=== PATIENT | male | born 1995 | race Caucasian/White ===

== ENCOUNTER 2021-08-28 13:23 | Outpatient (CLI) | payer OTHER, SELFPAY ==
--- NOTE | ~2021-08-28 | XR_ITS ---
XR ribs BI 3V w CXR 2V DATE: 08/28/2021 13:58 INDICATION: Chest pain. Left lateral rib pain following a fall on ice. TECHNIQUE: PA and lateral chest. 3 views of right ribs. 3 views of left ribs. COMPARISON: None FINDINGS: Normal heart size. No hilar or mediastinal enlargement. Old pulmonary granulomatous disease . No pulmonary infiltrate or consolidation, pleural effusion or pulmonary vascular congestion or pneu mothorax. No left or right rib fracture is detected. IMPRESSION: No significant abnormality Reviewed, dictated and finalized at location A. TEGIC SOURCING CONSULTANT IMPRESSION: No significant abnormality
== END 2021-08-28 13:24 | disposition home or self-care (01) ==
LOC: ANHIMG 13:29
PROVIDERS: PCP Family Medicine; Visit Provider Nurse Practitioner Family
DX: R07.81 Pleurodynia (principal)
CPT/HCPCS: 71046; 71110

== ENCOUNTER 2021-09-25 17:32 | Emergency (ER) | payer OTHER, SELFPAY ==
--- NOTE | ~2021-09-25 | XR_ITS ---
XR foot LT min 3V DATE: 09/25/2021 17:56 INDICATION: Left foot pain after dropping table on foot TECHNIQUE: 4 views COMPARISON: None FINDINGS: No fracture or dislocation, periosteal reaction or bone destruction. IMPRESSION: No fracture or dislocation Reviewed, dictated and finalized at location A. IMPRESSION: No fracture or dislocation
[2021-09-25 17:44] VITALS: BP 154/111; PULSE 81; RESP 18; TEMP 36.7; O2SAT 100
--- NOTE | 2021-09-25 18:12 | ED.LOWEXIN ---
HPI - Extremity Injury (Lower) General Chief Complaint: Extremity Injury, Lower Stated Complaint: lt foot injury Time Seen by Provider: 09/25/21 18:00 Source: patient, RN notes reviewed and old records reviewed Mode of arrival: ambulatory Limitations: no limitations History of Present Illness HPI Narrative: 25 year old male who presents to [facility] care with complaints of injury to his left great toe which occurred on Saturday when he was helping his parents move. He states a table fell onto his toe and he has swelling redness to distal toe with bruising and swelling around nail bed and nail is bruised. Patient states that toe is painful and throbbing with pain 6/10 at rest and 8/10 with any weight bearing. Patient has taken Tylenol and Ibuprofen and has been elevating foot and applying ice to his toe at intervals. MD complaint: foot injury (left great toe distal) Onset (ago): day(s) (2) Type of Injury: blunt Place: home Severity: moderate Severity scale (1-10): 6 Relieving factors: nothing Exacerbating factors: weight bearing Treatments prior to arrival: cold therapy, NSAIDS and other (elevation and Tylenol) Related Data Allergies Allergy/AdvReac Type Severity Reaction Status Date / Time No Known Allergies Allergy Verified 09/25/21 17:50 Review of Systems Review of Systems: CONSTITUTIONAL: Denies fever, chills, or sweats. EYES: Denies visual changes, redness, or discharge. ENT: Denies rhinorrhea, congestion, sore throat, or otalgia. CARDIOVASCULAR: Denies chest pain, palpitations, or edema. RESPIRATORY: Denies cough or dyspnea. GASTROINTESTINAL: Denies abdominal pain, nausea, vomiting, or diarrhea. GENITOURINARY: Denies dysuria or hematuria. SKIN: Denies rash or itching. MUSCULOSKELETAL: Denies back pain,positive for acute pain to the distal region of his left distal 1st toe, or myalgia. NEUROLOGIC: Denies headache, numbness, or weakness. PSYCHIATRIC: Positive for history of anxiety or depression. All systems reviewed & are unremarkable except as noted in HPI and below PMFSH Past Medical History Medical History Acute right ankle pain BMI 32.0-32.9,adult Dietary counseling and surveillance (10/10/18) Encounter for general adult medical examination without abnormal findings Unspecified hearing loss, left ear Family History Family History Father No problems noted. Mother No problems noted. Sibling No problems noted. 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 HEAD: Normocephalic, atraumatic. EYES: PERRLA and EOMI. ENT: Nares clear, no rhinorrhea or epistaxis. Mucous membranes moist.wears bilateral hearing aides for hearing loss throat normal with no complaints voiced. NECK: Supple. no lymphadenopathy CHEST: Clear to auscultation. No respiratory distress.SAO2 100% on room air HEART: Regular rate and rhythm. No murmur heard. Normal peripheral pulses. ABDOMEN: Soft, nontender, nondistended, normal active bowel sounds. EXTREMITIES: Normal range of motion. No edema.Exception noted to left great toe distally which is red, swollen with bruising around his nail bed and bruising to nail, painful at rest with increase pain with any ambulation. SKIN: Warm, dry, no rash. NEURO: No focal deficits. Alert and oriented x3. Course Course Level of Care: Express Care Visit Vital Signs Vital signs: Vital Signs Temperature 36.7 C 09/25/21 17:44 Pulse Rate 81 09/25/21 17:44 Respiratory Rate 18 09/25/21 17:44 Blood Pressure 154/111 H 03
[2021-09-25 18:32] VITALS: BP 158/116; PULSE 93
== END 2021-09-25 18:39 | disposition home or self-care (01) ==
PROVIDERS: Emergency Provider Registered Nurse; PCP Family Medicine
DX: S90.212A Contusion of left great toe with damage to nail, initial encounter (principal); W20.8XXA Other cause of strike by thrown, projected or falling object, initial encounter
CPT/HCPCS: 11740; 73630; 99213; G0463

== ENCOUNTER 2023-07-02 07:44 | Inpatient (IN) | payer OTHER, SELFPAY ==
[2023-07-02] VITALS (42 sets, daily range): BP systolic 107–184; BP diastolic 41–90; PULSE 82–126; RESP 18–48; TEMP 35.9–39.3; O2SAT 88–100
--- NOTE | 2023-07-02 | ECHO_ITS ---
Patient Info Name: David Hood Age: 27 years : 1995 Gender: Male Ht: 75 in Wt: 231 lbs BSA: 2.37 m2 HR: 102 bpm BP: 184 / 72 mmHg Heart Rhythm: Tachycardia Technical Quality: Fair Exam Date: 07/02/2023 9:33 AM Exam Location: Echo Lab Patient Status: Emergency Admit Date: 07/02/2023 Staff Ordering Physician: Clark Sherman MD Concrete Buildings Assembler: Patricia Arrington RDCS Attending Provider: Clark Sherman MD Exam Type: CA echo dop color flow w con Study Info Indications - Pulmonarycongestion Complete two-dimensional, color flow and Doppler transthoracic echocardiogram is performed with contrast to opacify the left ventricle and to improve the deliniation of the left ventricle endocardial borders. Contrast/Agitated Saline Contrast/Ag. Saline: Definity Amount: 2.00 ml Administered By: Patricia Arrington RDCS Existing IV Access: Yes IV Access Condition: patent with no signs of infiltration Summary 1. Definity contrast administered improved wall motion interpretation. 2. Left ventricular chamber dimension is normal. 3. Left ventricular systolic function is hyperdynamic, estimated at >70%. 4. The left ventricular diastolic function is abnormal. 5. E/e' 10 is mildly elevated. 6. There is trace mitral valve regurgitation. 7. There is trace tricuspid valve regurgitation. 8. Mild pulmonary hypertension, estimated pulmonary arterial systolic pressure is 40 mmHg. Left Ventricle E/e' 10 is mildly elevated. Definity contrast administered improved wall motion interpretation. Left ventricular chamber dimension is normal. Left ventricular systolic function is hyperdynamic, estimated at >70%. The left ventricular diastolic function is abnormal. Right Ventricle Right ventricular systolic function is normal and with normal TAPSE 2.6 cm. Right ventricular chamber dimension is normal. Left Atria Left atrial chamber dimension is normal. Right Atria Right atrial chamber dimension is normal. Aortic Valve The aortic valve is trileaflet. There is no aortic valve stenosis. There is no aortic valve regurgitation. Pulmonic Valve There is no pulmonic regurgitation. Mitral Valve There is no mitral valve stenosis. There is trace mitral valve regurgitation. Tricuspid Valve There is trace tricuspid valve regurgitation. Mild pulmonary hypertension, estimated pulmonary arterial systolic pressure is 40 mmHg. Pericardium/Pleural There is no pericardial effusion. Inferior Vena Cava Normal inferior vena cava with >50% collapse upon inspiration consistent with normal right atrial pressure, 5 mmHg. Aorta The aortic root size at the sinus of Valsalva is normal. Left Ventricular Outflow Tract Name Value Normal LVOT 2D LVOT Diameter 2.04 cm LVOT Doppler LVOT Peak Gradient 10 mmHg LVOT Mean Gradient 6 mmHg LVOT VTI 29.72 cm LVOT VTI/AV VTI Ratio 0.74 LVOT Stroke Volume 96.86 ml LVOT CO 10.39 l/min LVOT CI 4.38 L/min/m2 Pulmonic Valve
--- NOTE | ~2023-07-02 | CT_ITS ---
Clinical Indication: Pneumonia, CHF CT Scan of the Chest with Contrast: Technique: Contiguous sections were acquired throughout the chest after intravenous administration of 100 cc of Omnipaque 350. Dose reduction technique was used on this scan by utilizing automated expos ure control and iterative reconstruction technique. The dose-length product (DLP) was 897.90 mGy-cm. Findings: There is no evidence of any significant mediastinal, hilar or axillary lymphadenopathy. There is no f illing defect in the pulmonary arterial tree to suggest pulmonary embolus. There is no evidence of ao rtic dissection or aneurysm. No pericardial effusion. There are small to moderate bilateral pleural effusions. There is partial bilateral lower lobe atelec tasis. There is patchy airspace consolidation in the aerated lungs, worst in the right upper lobe. Images through the upper abdomen reveal no abnormalities. Impression: No evidence of pulmonary embolus, aortic dissection, or aortic aneurysm. [id number] bilateral pleural effusions with partial bilateral lower lobe atelectasis. Patchy consolidation in the aerated lungs, worst in the right upper lobe. Correlate for pulmonary salvador ma versus pneumonia. Reviewed, dictated and finalized at [facility]. ER POT Impression: No evidence of pulmonary embolus, aortic dissection, or aortic aneurysm. [id number] bilateral pleural effusions with partial bilateral lower lobe atelectasis. Patchy consolidation in the aerated lungs, worst in the right upper lobe. Corre late for pulmonary edema versus pneumonia.
--- NOTE | ~2023-07-02 | XR_ITS ---
XR chest 1V portable DATE: 07/02/2023 08:23 INDICATION: Cough, dyspnea, low oxygen level TECHNIQUE: Portable upright AP chest on 07/02/2023 at 0822 hours COMPARISON: August 28, 2021 PA and lateral chest and bilateral RIBS FINDINGS: There is pulmonary vascular congestion and redistribution. There is prominence of the minor fissure consistent with subpleural edema. There are bilateral patchy pulmonary infiltrates which predominate centrally and in the lower lung zo sachin, suggesting pulmonary edema. Superimposed pneumonia and atelectasis are not excluded. Small pleural effusions are not excluded. No pneumothorax is evident. Heart size appears within normal range. IMPRESSION: Pulmonary vascular congestion and redistribution, subpleural edema, extensive patchy bila teral perihilar infiltrates suggesting pulmonary edema. Pneumonia and or atelectasis are not excluded Reviewed, dictated and finalized at location B. L MACHINE OPERATOR IMPRESSION: Pulmonary vascular congestion and redistribution, subpleural edema, extensive patchy bilateral perihilar infiltrates suggesting pulmonary edema. P neumonia and or atelectasis are not excluded
--- NOTE | 2023-07-02 07:49 | ECG_ITS ---
Measurements Intervals [place] Rate: 112 P: 43 PA: 123 QRS: 43 QRSD: 85 T: 8 QT: 307 QTc: 421 Interpretive Statements SINUS TACHYCARDIA POSSIBLE LEFT ATRIAL ENLARGEMENT BORDERLINE ST-T WAVE ABNORMALITY- INFERIOR LEADS BASELINE ARTIFACT- III, AVL, AVF, V5-V6 ABNORMAL ECG NO PREVIOUS ECG AVAILABLE FOR COMPARISON Electronically Signed On 07-02-2023 8:08:09 LETTERPRESS SETTER by Otis Jean D.O.
[2023-07-02 08:09] LABS: Basophils Percent Auto 0.4 % (0.2-1.2); Eosinophils Absolute Auto 0.1 K/mm3 (0-0.3); Eosinophils Percent Auto 0.8 % (0-4.4); Hematocrit 35.6 % (42.0-52.0); Hemoglobin 11.6 g/dL (14.0-18.0); Immature Granulocyte Absolute 0.04 K/mm3 (0.00-0.031); Immature Granulocyte Percent A 0.5 % (0-0.5); Lymphocytes Absolute Auto 1.08 K/mm3 (0.9-3.2); Lymphocytes Percent Auto 14.4 % (18.3-44.2); Mean Corpuscular HGB Conc 32.6 g/dl (32-36); Mean Corpuscular Hemoglobin 28.3 pg (26-34); Mean Corpuscular Volume 86.8 fl (80-100); Mean Platelet Volume 8.6 fl (7.4-10.4); Monocytes Absolute Auto 0.3 K/mm3 (0.1-0.6); Monocytes Percent Auto 3.6 % (2.6-8.5); Neutrophils Percent Auto 80.3 % (45.5-73.1); Platelet Count Result 252 k/mm3 (150-375); Red Cell Distribution Width 13.2 % (11.5-14.5); White Blood Count 7.5 K/mm3 (4.5-10.0)
[2023-07-02 08:12] LABS: Fractional Inspired Oxygen 21 %; HCO3 VBG 26.1 mEq/l (24.0-30.0); PCO2 VBG 40.4 mmHg (42.0-48.0)
[2023-07-02 08:13] LABS: Device ROOM AIR; PO2 VBG < 27.0 mmHg (35.0-45.0); pH VBG 7.428 (7.300-7.400)
[2023-07-02 08:22] LABS: Alanine Aminotransferase 29 U/L (6-50); Albumin Level 3.8 g/dL (3.5-5.1); Alkaline Phosphatase 60 U/L (38-126); Anion Gap 9 mmol/L (8-16); Aspartate Amino Transferase 25 U/L (17-59); Bilirubin,Total 1.1 mg/dL (0.2-1.3); Blood Urea Nitrogen 7 mg/dL (9-20); Calcium 8.4 mg/dL (8.4-10.2); Carbon Dioxide 24 mmol/L (22-30); Chloride 109 mmol/L (98-107); Estimated CRCL calculation 184 ml/min; Estimated Glomerular Filt Rate > 60; Glucose 94 mg/dL (65-110); Lactic Acid Reflex 1.2 mmol/L (0.7-2.0); Potassium 3.9 mmol/L (3.4-5.0); Sodium 142 mmol/L (137-145)
[2023-07-02 08:45] LABS: Influenza A QL RT-PCR Negative (Negative); Influenza B QL RT-PCR Negative (Negative); RSV RNA, RT-PCR Negative (Negative); SARS-CoV-2 RNA PCR Negative (Negative)
--- NOTE | 2023-07-02 08:47 | ED.GENADULT ---
HPI - General Adult General Chief complaint: Upper Respiratory Infection Stated complaint: fever/diff breathing Time Seen by Provider: 07/02/23 08:47 Source: patient and family Mode of arrival: ambulatory Limitations: no limitations History of Present Illness HPI narrative: 27 years old white male came to the emergency room because of shortness of breath started last night. Patient is telling me that he has not been feeling well since June 06, 2023 intermittent fever, hot feeling, goes away in few hours and come back again. Then developed dry cough 1 week ago patient did not get tested for COVID 1 month ago Related Data Allergies Allergy/AdvReac Type Severity Reaction Status Date / Time No Known Allergies Allergy Verified 04/11/23 07:47 Review of Systems Review of Systems: All systems reviewed & are unremarkable except as noted in HPI and below PMFSH Past Medical History Medical History Acute right ankle pain BMI 32.0-32.9,adult BMI 33.0-33.9,adult BMI greater than 30 Dietary counseling and surveillance (10/10/18) Encounter for general adult medical examination without abnormal findings Unspecified hearing loss, left ear Family History Family History Father No problems noted. Mother No problems noted. Sibling No problems noted. 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 Musculoskeletal: Normal range of motion, nontender back Neurologic: Alert and oriented ?3, GAS PLUMBER is normal as tested, no gross motor deficit Course Reevaluation(s) Reevaluation #1: Feeling a little better after IV fluid, Toradol and Tylenol Date: 07/02/23 Time: 09:15 Consultations Consultation #1: Dr. Olvera Date: 07/02/23 Time: 09:15 Vital Signs Vital signs: Vital Signs Temperature 39.3 C H 07/02/23 07:47 Pulse Rate 122 H 07/02/23 07:47 Respiratory Rate 21 H 07/02/23 07:47 Blood Pressure 184/72 H 07/02/23 07:47 Pulse Oximetry 93 07/02/23 07:47 Temperature 37.3 C 07/02/23 11:12 Pulse Rate 94 07/02/23 11:01 Respiratory Rate 27 H 07/02/23 11:01 Blood Pressure 116/54 L 07/02/23 11:01 Pulse Oximetry 95 07/02/23 11:01 Oxygen Delivery Nasal Cannula 07/02/23 10:49 Oxygen Flow Rate 3 07/02/23 10:49 Medical Decision Making [facility] Narrative Medical decision making narrative: Patient presents with shortness of breath, not feeling well for almost 1 month Vital signs on a
[2023-07-02 08:50] LABS: Prothrombin Time 13.8 Seconds (11.1-14.7)
[2023-07-02 08:51] LABS: Partial Thromboplastin Time 26.4 SECONDS (22.3-36.8)
[2023-07-02 09:05] LABS: NT Pro B Type Natriuretic Pept 1190 pg/mL (19.9-100)
[2023-07-02] MEDS: KETOROLAC 30 MG/ML VIAL (*BKC) IV PUSH (09:10)
[2023-07-02] MEDS: SODIUM CHLORIDE 0.9% IV 1,000 ML 999 ML IV CONT (09:10)
[2023-07-02] MEDS: ACETAMINOPHEN 500 MG TABLET 1000 MG PO (09:11)
[2023-07-02 09:20] LABS: Alveolar/Arterial O2 Gradient 64.1 mmHg; Base Excess ABG 1.7 mEq/l (+/-2.0); Carboxyhemoglobin 0.5 % THb (0-2.0); Fractional Inspired Oxygen 21 %; HCO3 ABG 23.9 mEq/l (22.0-26.0); Methemoglobin ABG 0.4 %THb (0-1.5); Oxygen Content ABG 13.8 %vol (16.0-22.0); Oxygen Saturation ABG 89.6 % (95.0-100.0); PCO2 ABG 29.8 mmHg (35.0-45.0); PO2 ABG 49.9 mmHg (80.0-100.0); PO2 FiO2 Ratio Arterial Blood 2.38 %; Reduced Hemoglobin 13.3 %THb (0-5.0); Total Hemoglobin 11.4 g/dL (12.0-18.0)
[2023-07-02 09:21] LABS: pH ABG 7.522 (7.350-7.450)
[2023-07-02 09:22] LABS: Modified Allen's Test Pass; Oxyhemoglobin 85.8 % THb (90.0-100.0); Site Drawn RIGHT RADIAL
[2023-07-02] MEDS: ALBUTEROL SULFATE NEB 2.5 MG/3 ML INH INHALATION ×3 (09:31→17:51)
--- NOTE | 2023-07-02 09:47 | PC.NURSE ---
This RN walked into pts room and pts mother stated I clamped your IV fluids because you were about to lose your line. This RN told her it is inappropriate to mess with the IV medications and asked her to not adjust them again. Pts mother verbalized understanding. buffing turner and counter notified.
[2023-07-02 10:13] LABS: HIV 1/2 Ab P24 Ag Result Negative (Negative)
[2023-07-02] MEDS: PERFLUTREN LIPID MICROSPHERES 1.5 ML VIAL DILUTED TO 10 ML TOTAL VOLUME IV PUSH (10:13)
--- NOTE | 2023-07-02 10:47 | IVDEFINITY ---
Prior to administration of IV Definity the patient was educated on the risks and benefits of the imaging enhancing agent including potential adverse side effects. The patient verbalized understanding. Allergies were verified. No exclusion criteria were identified and at least one of the following inclusion criteria were met: 1) physician request, 2) patient technically difficult to image (per the [place] Society of Echocardiography guidelines of two or more segments not discernable within the apical view), or 3) questionable left ventricular function. ?
[2023-07-02] MEDS: AZITHROMYCIN 500 MG/NS 250 ML 500 MG/250 ML BAG 250 MG IVPB (10:49)
--- NOTE | 2023-07-02 14:14 | ADMGEN ---
This patient, David Hood, was admitted to Medical Room 245-. Patient/family oriented to hospital policies and general routines including ID bracelet, bed and alarms, visiting hours, pain management, procedures, bathroom and other care routines, personal items, smoking policy, room service/diet, and visiting hours. Information on how to activate the Rapid Response Team has been discussed. Patient/Family are encouraged to report perceived risks to care and to ask questions if they do not understand what they are told or what they should do.
--- NOTE | 2023-07-02 15:40 | PM.IMHP ---
H&P: HPI History of Present Illness Date/Time: 07/02/23 15:50 Chief Complaint: Cough and shortness of breath. Narrative: This is a very pleasant and previously healthy 27-year-old male who presented to the emergency department via private vehicle for evaluation of cough and shortness of breath. The patient provides the following history. The 1st week of May he had what sounds like a probable viral infection with hot flashes, intermittent fever, and cough. Symptoms seemed to improve for a brief period of time however about 1 week ago he once again started having intermittent hot flashes, subjective fevers, and a dry cough. The last few days he has felt increasingly short of breath with exertion and endorses moderate orthopnea. He denies headache, sore throat, vomiting, diarrhea, lower extremity edema, calf pain, chest pain, pleuritic pain, syncope, near syncope. No dysphagia or concerns for aspiration. He traveled to [place] a couple of months ago but no overseas travel. He does not have any close, sick contacts. He has no known history of cardiac or pulmonary disease. In the ED: He was tachycardic and tachypneic on arrival to the ED with a temperature of 102.7? on arrival to ED. Blood pressures have been stable. SpO2 was as low as 88% on room air and he is currently on 3 L nasal cannula. Labs were significant for WBC count of 7.5, hemoglobin 11.6, lactic acid 1.2, proBNP 1190. He tested negative for influenza, RSV, and COVID. HIV screening was negative. Chest x-ray showed findings suggestive of pulmonary edema. Chest CTA showed no evidence of pulmonary embolus, aortic dissection, or aortic aneurysm. Small to moderate bilateral pleural effusions with partial bilateral lower lobe atelectasis was noted as well as patchy consolidation, worse in the right upper lobe, consistent with pulmonary edema versus pneumonia. Interventions thus far include an albuterol and nebulizer treatment, 500 mg azithromycin, and 1 gram ceftriaxone. After he was admitted to the floor he began to feel increasingly short of breath. Rapid response was called and he was started on an hour long nebulizer treatment. Ultimately that was stopped after he became tachycardic and he was given IV furosemide 40 mg x 1 and he has had good response with that. Review of Systems Review of Systems: Twelve systems were reviewed with pertinent positives and negatives as per HPI. [facility] Past Medical History Medical History (Updated 07/02/23 @ 22:25 by Barbie Millan PA-C) Depression with anxiety Hearing loss Surgical History Surgical History (Updated 07/02/23 @ 22:23 by Barbie Millan PA-C) No history of previous surgery Family History Family History Father No problems noted. Mother No problems noted. Sibling No problems noted. Social History Social History Social History: Surrogate medical decision maker: Sonny or Kassi Hood, parents. Code status: Full code. 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 Spiritual care concerns: No Meds Home Medications and Allergies Home Medications Medication Instructions Recorded Confirmed Type semaglutide (weight loss) 0.5 0.5 mg (0.5 mL) subcut WEEKLY #2 mL
[2023-07-02 16:41] LABS: CRP 3.1 mg/dL (<1.0)
[2023-07-02 16:56] LABS: Troponin I 0.063 ng/mL (0.000-0.034)
[2023-07-02 17:08] LABS: Iron 32 ug/dL (49-181)
[2023-07-02 17:18] LABS: Percent Iron Saturation 13 % (20-50)
[2023-07-02 17:26] LABS: Procalcitonin 0.1 ng/mL
[2023-07-02 17:45] LABS: Folic Acid 7.8 ng/mL (2.76->20)
[2023-07-02] MEDS: IPRATROPIUM BR 0.02% INH SOLN 0.5 MG/2.5 ML VIAL INHALATION (17:51)
[2023-07-02 18:32] LABS: Glucose Point of Care 83 mg/dl (65-105)
[2023-07-02] MEDS: ALBUTEROL SULFATE NEB 2.5 MG/3 ML INH 10 MG INHALATION (18:32)
[2023-07-02] MEDS: IPRATROPIUM BR 0.02% INH SOLN 0.5 MG/2.5 ML VIAL 2 MG INHALATION (18:32)
--- NOTE | 2023-07-02 18:38 | PC.NURSE ---
pt came up to unit around 1500. At about 1740 pt's respirations were 48. Provider notified and order a nebulizer. After nebulizer was given, pt was still struggling to breath. Rapid Response was called. Vitals were checked, O2 was 88%, pt bumped up to 5 L of oxygen. provider ordered an hour long albuterol treatment and 40 mg of lasix. Will reassess when treatment is done.
[2023-07-02] MEDS: FUROSEMIDE INJ 40 MG/4 ML VIAL IV PUSH (18:51)
--- NOTE | 2023-07-02 19:39 | ECG_ITS ---
Measurements Intervals [place] Rate: 112 P: 8 IA: 92 QRS: 8 QRSD: 91 T: -5 QT: 342 QTc: 467 Interpretive Statements SINUS TACHYCARDIA WITH SHORT IA INTERVAL POSSIBLE LEFT ATRIAL ENLARGEMENT NONSPECIFIC ST & T-WAVE ABNORMALITY- ANTEROLAT/INF LEADS BASELINE ARTIFACT- II, III, AVR, AVL, AVF, V1-V5 ABNORMAL ECG COMPARED TO ECG 07/02/2023 07:57:32 NO SIGNIFICANT CHANGES Electronically Signed On 07-03-2023 7:43:28 OCEANOGRAPHER GEOLOGICAL by Otis Jean D.O.
[2023-07-02 21:10] LABS: Troponin I 0.056 ng/mL (0.000-0.034)
[2023-07-02] MEDS: ACETAMINOPHEN 325 MG TABLET 650 MG PO (21:18)
[2023-07-02] MEDS: ESCITALOPRAM OXALATE 10 MG TABLET 20 MG PO (21:19)
[2023-07-02] MEDS: guaiFENesin 12 HR 600 MG TABCR 1200 MG PO (21:19)
[2023-07-02 21:20] LABS: Anion Gap 8 mmol/L (8-16); Blood Urea Nitrogen 7 mg/dL (9-20); Calcium 7.9 mg/dL (8.4-10.2); Carbon Dioxide 25 mmol/L (22-30); Chloride 107 mmol/L (98-107); Estimated CRCL calculation 184 ml/min; Estimated Glomerular Filt Rate > 60; Glucose 135 mg/dL (65-110); Potassium 3.2 mmol/L (3.4-5.0); Sodium 140 mmol/L (137-145)
[2023-07-02] MEDS: POTASSIUM CHLORIDE 20 MEQ ER TABLET 40 MEQ PO (23:17)
[2023-07-03] VITALS (20 sets, daily range): BP systolic 117–129; BP diastolic 46–59; PULSE 73–100; RESP 14–24; TEMP 36.2–36.7; O2SAT 88–98
[2023-07-03 00:40] LABS: Troponin I 0.064 ng/mL (0.000-0.034)
[2023-07-03] MEDS: ALBUTEROL SULFATE NEB 2.5 MG/3 ML INH INHALATION ×4 (01:41→21:09)
[2023-07-03 06:10] LABS: Basophils Percent Auto 0.4 % (0.2-1.2); Eosinophils Percent Auto 0.6 % (0-4.4); Hematocrit 30.6 % (42.0-52.0); Hemoglobin 10.1 g/dL (14.0-18.0); Immature Granulocyte Absolute 0.04 K/mm3 (0.00-0.031); Immature Granulocyte Percent A 0.6 % (0-0.5); Lymphocytes Absolute Auto 1.31 K/mm3 (0.9-3.2); Lymphocytes Percent Auto 19.6 % (18.3-44.2); Mean Corpuscular Hemoglobin 28.7 pg (26-34); Mean Corpuscular Volume 86.9 fl (80-100); Mean Platelet Volume 8.7 fl (7.4-10.4); Monocytes Absolute Auto 0.4 K/mm3 (0.1-0.6); Monocytes Percent Auto 5.4 % (2.6-8.5); Neutrophils Absolute Auto 4.9 K/mm3 (1.3-6.7); Neutrophils Percent Auto 73.4 % (45.5-73.1); Platelet Count Result 242 k/mm3 (150-375); Red Blood Count 3.52 M/mm3 (4.6-6.20); Red Cell Distribution Width 13.1 % (11.5-14.5); White Blood Count 6.7 K/mm3 (4.5-10.0)
[2023-07-03 06:24] LABS: Anion Gap 8 mmol/L (8-16); Blood Urea Nitrogen 6 mg/dL (9-20); Calcium 7.8 mg/dL (8.4-10.2); Carbon Dioxide 26 mmol/L (22-30); Chloride 106 mmol/L (98-107); Estimated CRCL calculation 184 ml/min; Estimated Glomerular Filt Rate > 60; Glucose 91 mg/dL (65-110); Potassium 3.5 mmol/L (3.4-5.0); Sodium 140 mmol/L (137-145)
[2023-07-03] MEDS: guaiFENesin 12 HR 600 MG TABCR 1200 MG PO ×2 (09:43→20:06)
[2023-07-03] MEDS: POTASSIUM CHLORIDE 20 MEQ ER TABLET PO (09:44)
[2023-07-03] MEDS: FUROSEMIDE INJ 40 MG/4 ML VIAL IV PUSH (09:45)
[2023-07-03] MEDS: AZITHROMYCIN 500 MG/NS 250 ML 500 MG/250 ML BAG 250 MG IVPB (09:46)
--- NOTE | 2023-07-03 11:37 | PM.IMPN ---
Progress Note: A&P Assessment and Plan (1) Acute hypoxic respiratory failure: Code(s): J96.01 - Acute respiratory failure with hypoxia Status: Acute Assessment and Plan: He was febrile on arrival and hypoxic, required 4 L nasal cannula. Chest CTA was negative for pulmonary embolus, aortic dissection, and aortic aneurysm but did note small to moderate bilateral pleural effusions with partial bilateral lobe atelectasis as well as patchy consolidation in the aerated lungs. Lasix given PRN to help SOB. Volume status, renal function, and electrolytes will be monitored closely while diuresing. Echocardiogram with an EF of greater than 70%, abnormal diastolic function and mild pulmonary hypertension Patient started on empiric IV antibiotics (2) Pneumonia: Code(s): J18.9 - Pneumonia, unspecified organism Status: Acute Assessment and Plan: Patient started on empiric IV antibiotic therapy. Rocephin azithromycin continue. DuoNebs ordered. Mucinex p.r.n. Obtained sputum culture if possible 07/03/23 blood cultures with Gram-positive cocci in chains. Rocephin increased to 2 g. (3) Pleural effusion: Code(s): J90 - Pleural effusion, not elsewhere classified Status: Acute Assessment and Plan: likely secondary to pneumonia. (4) Normocytic anemia: Code(s): D64.9 - Anemia, unspecified Status: Acute Assessment and Plan: The patient has a mild, normocytic anemia and iron studies, B12, and folate levels have been ordered. Lab revealing some iron deficiency anemia as well as low B12. Will start patient on B12 and iron supplement. Subjective Date/time seen: 07/03/23 11:37 Interval history: Patient states that he is feeling much better today. His shortness of breath as well his cough has improved. He denies any productive cough although will order sputum culture just in case patient is able to put some. Pulmonology consulted and will see the patient. Briefly discussed case with pulmonology and they believe that he does have a pneumonia but they will examine the patient in for further evaluation. He denies any chest pain, nausea, vomiting, diarrhea. Exam Narrative: GENERAL: Comfortable, no acute distress HENMT: moist mucous membranes EYES: EOM intact b/l NECK: no lymphadenopathy RESPIRATORY: Distant breath sounds CARDIO: RRR GI: soft, nontender, bowel sounds present SKIN: no rashes EXTREMITIES: no edema, redness or tenderness Objective Data Vital Signs Vital Signs: Vital Signs - 24 hr 07/02/23 12:01 07/02/23 12:02 07/02/23 12:15 Temperature Pulse Rate 87 90 88 Respiratory Rate 23 H 29 H 36 H Blood Pressure 129/50 L Pulse Oximetry 98 98 97 Oxygen Delivery Oxygen Flow Rate Fraction of Inspired Oxygen 07/02/23 12:30 07/02/23 12:31 07/02/23 12:45 Temperature Pulse Rate 83 85 86 Respiratory Rate 38 H 38 H 31 H Blood Pressure 113/50 L Pulse Oximetry 97 97 97 Oxygen Delivery Oxygen Flow Rate Fraction of Inspired Oxygen 07/02/23 13:00 07/02/23 13:01 07/02/23 14:06 Temperature 96.7 F L Pulse Rate 86 82 87 Respiratory Rate 20 30 H 36 H Blood Pressure 119/46 L 116/47 L Pulse Oximetry 97 98 99 Oxygen Delivery Oxygen Flow Rate Fraction of Inspired Oxygen 07/02/23 14:49 07/02/23 16:00 07/02/23 17:47 Temperature Pulse Rate 82 92 Respiratory Rate 32 H Blood Pressure Pulse Oximetry 99 Oxygen Delivery Nasal Cannula Oxygen Flow Rate 3 Fraction of Inspired Oxygen 07/02/23 17:55 07/02/23 18:06 07/02/23 18:20 Temperature Pulse Rate 102 H Respiratory Rate 36 H Blood Pressure 135/58 L Pulse Oximetry 88 L 92 100 Oxygen Delivery Nasal Cannula Non-Rebreather Mask Oxygen Flow Rate 3 4 Fraction of Inspired Oxygen 07/02/23 18:30 07/02/23 20:49 07/02/23 20:00 Temperature 98.6 F Pulse Rate 90 114 H 116 H Respi
--- NOTE | 2023-07-03 11:48 | PM.CNPUL ---
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 He presents with a fever, CT scan with bilateral, right greater than left interstitial infiltrates consistent with a pneumonic process. HIV is negative. his COVID, RSV and influenza RT PCR study are negative. His blood cultures are negative to date. Urine Legionella and pneumococcal antigens pending. Mycoplasma IgM pending. I suspect this initially was a viral infection and now he has a superimposed bacterial infection. 07/03/23: Currently the patient tells me he is a lot better. He feels 85% back to normal. He has no rest shortness of breath. The left-sided pleuritic chest pain is gone today. His cough is 80% better and this is dry without any phlegm or hemoptysis. When I entered the room he was on 2 L with saturations 95%. I placed him on room air and after 15 minutes his saturations were 91%. Patient denies passing out, alcohol use, seizures or aspiration. Plan: Continue treatment for community-acquired pneumonia with ceftriaxone and azithromycin. I will send a respiratory pathogen panel to [facility] which will take 10 days to return. Goal saturation 90-94%. Once he is clinically stable with switch to oral antibiotics and continue treatment for total 7-10 days. Follow-up with PCP. I answered all patient's and mother's questions. Will sign off, call with questions History of Present Illness History of Present Illness Consult date: 07/03/23 Chief complaint: Pneumonia/Pulmonary Edema/Acute Hypoxic Resp Failu Narrative: This is a new pulmonary consult for pneumonia. 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 The patient denies asthma or any chronic lung conditions. At baseline he can walk 3 miles over 1 hour and has no respiratory limitations with this activity or with his activities of daily living. Patient is a never tobacco user and has no secondhand exposure. Patient does not vape or use illicit drugs. 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 On 06/06/2023 the patient developed chills, headache and fever. Symptoms continued through 06/24 when he then developed fatigue, cough which was dry and left-sided pleuritic chest pain. On 06/26 he did a home COVID test that was negative. On 07/01 he developed shortness of breath and presented to the emergency department on 07/02/2023. Patient was febrile, white blood cell count 6.7, eosinophils 0.6%, troponin 0.63, 0.56 and then 0.64, BNP was 1109, COVID, influenza and RSV RT PCR studies negative. VBG on room air was 7.43/40/less than 27. ABG on room air was 7.5 . Chest x-ray demonstrated patchy infiltrates and congestion. CT angiogram of the chest showed no pulmonary embolism, small to moderate bilateral pleural effusions with lower lobe atelectasis and patchy consolidations predominantly in the right upper lobe. HIV study negative. Patient was started supplemental oxygen and on ceftriaxone and azithromycin admitted to the hospital. 07/03/23: Currently the patient tells me he is a lot better. He feels 85% back to normal. He has no rest shortness of breath. The left-sided pleuritic chest pain is gone today. His cough is 80% better and this is dry without any phlegm or hemoptysis. When I entered the room he was on 2 L with saturations 95%. I placed him on room air and after 15 minutes his saturations were 91%. Patient denies passing out, alcohol use, seizures or aspiration. ======
[2023-07-03] MEDS: ESCITALOPRAM OXALATE 10 MG TABLET 20 MG PO (20:06)
[2023-07-03] MEDS: cefTRIAXone 2 GM/NS 100 ML 2 GM/100 ML BAG IVPB (20:06)
[2023-07-04] VITALS (17 sets, daily range): BP systolic 105–121; BP diastolic 43–58; PULSE 74–90; RESP 16–18; TEMP 36.7–37; O2SAT 96–99
[2023-07-04] MEDS: ALBUTEROL SULFATE NEB 2.5 MG/3 ML INH INHALATION ×4 (02:49→23:10)
[2023-07-04 06:42] LABS: Basophils Percent Auto 0.3 % (0.2-1.2); Eosinophils Absolute Auto 0.1 K/mm3 (0-0.3); Eosinophils Percent Auto 1.3 % (0-4.4); Hematocrit 31.7 % (42.0-52.0); Hemoglobin 10.2 g/dL (14.0-18.0); Immature Granulocyte Absolute 0.03 K/mm3 (0.00-0.031); Immature Granulocyte Percent A 0.4 % (0-0.5); Lymphocytes Absolute Auto 1.69 K/mm3 (0.9-3.2); Lymphocytes Percent Auto 23.6 % (18.3-44.2); Mean Corpuscular HGB Conc 32.2 g/dl (32-36); Mean Corpuscular Volume 87.1 fl (80-100); Mean Platelet Volume 8.7 fl (7.4-10.4); Monocytes Absolute Auto 0.4 K/mm3 (0.1-0.6); Monocytes Percent Auto 5.3 % (2.6-8.5); Neutrophils Percent Auto 69.1 % (45.5-73.1); Platelet Count Result 271 k/mm3 (150-375); Red Blood Count 3.64 M/mm3 (4.6-6.20); Red Cell Distribution Width 13.1 % (11.5-14.5); White Blood Count 7.2 K/mm3 (4.5-10.0)
[2023-07-04 06:57] LABS: Alanine Aminotransferase 24 U/L (6-50); Albumin Level 3.2 g/dL (3.5-5.1); Alkaline Phosphatase 51 U/L (38-126); Anion Gap 6 mmol/L (8-16); Aspartate Amino Transferase 25 U/L (17-59); Bilirubin,Total 0.9 mg/dL (0.2-1.3); Blood Urea Nitrogen 7 mg/dL (9-20); Calcium 8.1 mg/dL (8.4-10.2); Carbon Dioxide 24 mmol/L (22-30); Chloride 108 mmol/L (98-107); Estimated CRCL calculation 184 ml/min; Estimated Glomerular Filt Rate > 60; Glucose 86 mg/dL (65-110); Potassium 3.9 mmol/L (3.4-5.0); Sodium 138 mmol/L (137-145)
[2023-07-04] MEDS: AZITHROMYCIN 250 MG TABLET 500 MG PO (08:34)
[2023-07-04] MEDS: CYANOCOBALAMIN 1,000 MCG TABLET 1000 MCG PO (08:35)
[2023-07-04] MEDS: guaiFENesin 12 HR 600 MG TABCR 1200 MG PO ×2 (08:35→20:09)
[2023-07-04] MEDS: FERROUS GLUCONATE 324 MG TABLET PO (08:35)
--- NOTE | 2023-07-04 11:09 | PM.IMPN ---
Progress Note: A&P Assessment and Plan (1) Acute hypoxic respiratory failure: Code(s): J96.01 - Acute respiratory failure with hypoxia Status: Acute Assessment and Plan: He was febrile on arrival and hypoxic, required 4 L nasal cannula. Chest CTA was negative for pulmonary embolus, aortic dissection, and aortic aneurysm but did note small to moderate bilateral pleural effusions with partial bilateral lobe atelectasis as well as patchy consolidation in the aerated lungs. Volume status, renal function, and electrolytes will be monitored closely while diuresing. Echocardiogram with an EF of greater than 70%, abnormal diastolic function and mild pulmonary hypertension Now are room air. Continue IV antibiotics (2) Pneumonia: Code(s): J18.9 - Pneumonia, unspecified organism Status: Acute Assessment and Plan: Patient started on empiric IV antibiotic therapy. Rocephin and azithromycin continue. DuoNebs ordered. Mucinex p.r.n. Obtained sputum culture if possible 07/03/23 Rocephin increased to 2 g. Blood cultures positive for Streptococcus anginosus. Waiting for sensitivities. (3) Pleural effusion: Code(s): J90 - Pleural effusion, not elsewhere classified Status: Acute Assessment and Plan: likely secondary to pneumonia. (4) Normocytic anemia: Code(s): D64.9 - Anemia, unspecified Status: Acute Assessment and Plan: The patient has a mild, normocytic anemia and iron studies, B12, and folate levels have been ordered. Lab revealing some iron deficiency anemia as well as low B12. Will start patient on B12 and iron supplement. Subjective Date/time seen: 07/04/23 11:09 Interval history: Patient feeling better today. He is no longer on oxygen supplementation. He does get winded occasionally but otherwise stable. Blood cultures did come back positive. Waiting for sensitivities return. Once sensitivities return will try to decelerate antibiotics. Continue to monitor culture status. Exam Narrative: GENERAL: Comfortable, no acute distress HENMT: moist mucous membranes EYES: EOM intact b/l NECK: no lymphadenopathy RESPIRATORY: Distant breath sounds although clear CARDIO: RRR GI: soft, nontender, bowel sounds present SKIN: no rashes EXTREMITIES: no edema, redness or tenderness Objective Data Vital Signs Vital Signs: Vital Signs - 24 hr 07/03/23 13:44 07/03/23 13:52 07/03/23 14:00 Temperature 97.2 F L Pulse Rate 92 93 93 Respiratory Rate 18 18 14 Blood Pressure 117/46 L Pulse Oximetry 98 Oxygen Delivery Oxygen Flow Rate Fraction of Inspired Oxygen 07/03/23 12:00 07/03/23 16:00 07/03/23 16:01 Temperature Pulse Rate 84 Respiratory Rate Blood Pressure Pulse Oximetry 88 L 96 Oxygen Delivery Room Air Nasal Cannula Oxygen Flow Rate 1 Fraction of Inspired Oxygen 07/03/23 16:00 07/03/23 16:34 07/03/23 16:34 Temperature Pulse Rate 82 Respiratory Rate Blood Pressure Pulse Oximetry 88 L 92 Oxygen Delivery Nasal Cannula Nasal Cannula Oxygen Flow Rate 1 2 Fraction of Inspired Oxygen 07/03/23 19:45 07/03/23 20:00 07/03/23 20:04 Temperature 97.9 F Pulse Rate 91 88 Respiratory Rate 18 Blood Pressure 122/59 L Pulse Oximetry 97 97 Oxygen Delivery Nasal Cannula Oxygen Flow Rate 2 Fraction of Inspired Oxygen 07/03/23 21:05 07/03/23 21:10 07/04/23 00:01 Temperature Pulse Rate 86 83 Respiratory Rate 18 Blood Pressure Pulse Oximetry 96 Oxygen Delivery Nasal Cannula Oxygen Flow Rate 2 Fraction of Inspired Oxygen 28 07/04/23 02:48 07/04/23 04:00 07/04/23 06:00 Temperature 98.6 F Pulse Rate 87 84 85 Respiratory Rate 18 18 Blood Pressure 121/46 L Pulse Oximetry 97 Oxygen Delivery Oxygen Flow Rate Fraction of Inspired Oxygen 07/04/23 07:45 07/04/23 07:45 07/04/23 10:3
[2023-07-04] MEDS: cefTRIAXone 2 GM/NS 100 ML 2 GM/100 ML BAG IVPB (20:08)
[2023-07-04] MEDS: ESCITALOPRAM OXALATE 10 MG TABLET 20 MG PO (20:08)
[2023-07-05] VITALS (9 sets, daily range): BP systolic 113; BP diastolic 37; PULSE 75–86; RESP 17–18; TEMP 36.9; O2SAT 96–97
[2023-07-05 04:57] LABS: Basophils Percent Auto 0.4 % (0.2-1.2); Eosinophils Absolute Auto 0.1 K/mm3 (0-0.3); Eosinophils Percent Auto 1.3 % (0-4.4); Hematocrit 32.5 % (42.0-52.0); Hemoglobin 10.4 g/dL (14.0-18.0); Immature Granulocyte Absolute 0.03 K/mm3 (0.00-0.031); Immature Granulocyte Percent A 0.4 % (0-0.5); Lymphocytes Absolute Auto 1.52 K/mm3 (0.9-3.2); Lymphocytes Percent Auto 21.3 % (18.3-44.2); Mean Corpuscular Hemoglobin 28.3 pg (26-34); Mean Corpuscular Volume 88.3 fl (80-100); Mean Platelet Volume 8.6 fl (7.4-10.4); Monocytes Absolute Auto 0.3 K/mm3 (0.1-0.6); Monocytes Percent Auto 4.5 % (2.6-8.5); Neutrophils Absolute Auto 5.1 K/mm3 (1.3-6.7); Neutrophils Percent Auto 72.1 % (45.5-73.1); Platelet Count Result 278 k/mm3 (150-375); Red Blood Count 3.68 M/mm3 (4.6-6.20); Red Cell Distribution Width 13.2 % (11.5-14.5); White Blood Count 7.1 K/mm3 (4.5-10.0)
[2023-07-05 05:10] LABS: Alanine Aminotransferase 37 U/L (6-50); Albumin Level 3.2 g/dL (3.5-5.1); Alkaline Phosphatase 52 U/L (38-126); Anion Gap 5 mmol/L (8-16); Aspartate Amino Transferase 35 U/L (17-59); Bilirubin,Total 0.7 mg/dL (0.2-1.3); Blood Urea Nitrogen 7 mg/dL (9-20); Calcium 8.3 mg/dL (8.4-10.2); Carbon Dioxide 25 mmol/L (22-30); Chloride 109 mmol/L (98-107); Estimated CRCL calculation 184 ml/min; Estimated Glomerular Filt Rate > 60; Glucose 83 mg/dL (65-110); Sodium 139 mmol/L (137-145)
[2023-07-05] MEDS: ALBUTEROL SULFATE NEB 2.5 MG/3 ML INH INHALATION ×2 (07:06→12:57)
[2023-07-05] MEDS: AZITHROMYCIN 250 MG TABLET 500 MG PO (11:14)
[2023-07-05] MEDS: CYANOCOBALAMIN 1,000 MCG TABLET 1000 MCG PO (11:14)
[2023-07-05] MEDS: guaiFENesin 12 HR 600 MG TABCR 1200 MG PO (11:14)
[2023-07-05] MEDS: FERROUS GLUCONATE 324 MG TABLET PO (11:14)
[2023-07-05 13:00] LABS: Mycoplasma IgM Antibody Titer 103 U/mL (<770)
--- NOTE | 2023-07-05 13:59 | PM.DS ---
DS: Admitting Diagnosis Discharge Date 07/04/23 Admitting Diagnosis Pneumonia, bacteremia DS: Discharge Diagnosis Discharge Diagnosis (1) Acute hypoxic respiratory failure: Code(s): J96.01 - Acute respiratory failure with hypoxia Status: Acute (2) Pneumonia: Code(s): J18.9 - Pneumonia, unspecified organism Status: Acute (3) Pleural effusion: Code(s): J90 - Pleural effusion, not elsewhere classified Status: Acute (4) Normocytic anemia: Code(s): D64.9 - Anemia, unspecified Status: Acute DS: Summary Hospital Course Hospital Course: this is a 27-year-old male with insignificant past medical history that presented to the ED on 07/02/2023 for evaluation of cough and shortness of breath. He had been feeling ill for approximately 1 month with what he presumed was a viral upper respiratory infection. He had developed hot flashes, intermittent fever and cough over the past couple days. He had increasing shortness of breath with exertion and some orthopnea. He denied any headache, sore throat, diarrhea, vomiting, nausea, lower extremity edema, half pain, chest pain, pleuritic chest pain, syncope or dysphagia. When he arrived to the ED his temp was 102.7? blood pressure was stable but he was found to be hypoxic as a was 88% on room air. Labs were significant for WBC count of 7.5, hemoglobin 11.6, lactic acid 1.2, proBNP 1190. He tested negative for influenza, RSV, and COVID. HIV screening was negative. Chest x-ray showed findings suggestive of pulmonary edema. Chest CTA showed no evidence of pulmonary embolus, aortic dissection, or aortic aneurysm. Small to moderate bilateral pleural effusions with partial bilateral lower lobe atelectasis was noted as well as patchy consolidation, worse in the right upper lobe, consistent with pulmonary edema versus pneumonia.? He was started on DuoNebs, ceftriaxone azithromycin as well as given 1 dose of furosemide. Pulmonology was consulted and believed the patient was on correct treatment for community acquired pneumonia. blood cultures were drawn and came back positive for Streptococcus anginosus this was sensitive to penicillins. blood cultures were redrawn and will be followed. Patient had been on correct therapy and he was decelerated to amoxicillin. his labs and vital signs stable he is medically cleared for discharge at this time. Time Spent with Patient Time attestation: Total time spent providing and/or coordinating discharge services: DS: Data Data Completed and Pending Labs on day of discharge: Labs from last 24 hours 07/05/23 07/02/23 04:33 23:48 WBC 7.1 RBC 3.68 L Hgb 10.4 L Hct 32.5 L MCV 88.3 MCH 28.3 MCHC 32.0 RDW 13.2 Plt Count 278 MPV 8.6 Immature Gran % (Auto) 0.4 Neut % (Auto) 72.1 Lymph % (Auto) 21.3 Hawkins % (Auto) 4.5 Eos % (Auto) 1.3 Baso % (Auto) 0.4 Lymph # (Auto) 1.52 Hawkins # (Auto) 0.3 Eos # (Auto) 0.1 Baso # (Auto) 0.0 Abs Immat Gran (auto) 0.03 Absolute Neuts (auto) 5.1 Absolute Nucleated RBC 0.0 Nucleated RBC % 0.0 Sodium 139 Potassium 4.0 Chloride 109 H Carbon Dioxide 25 Anion Gap 5 L BUN 7 L Creatinine 0.60 L Estim Creat Clear Calc 184 Estimated GFR > 60 Glucose 83 Calcium 8.3 L Total Bilirubin 0.7 AST 35 ALT 37 Alkaline Phosphatase 52 Total Protein 6.0 L Albumin 3.2 L Mycoplasma pneumon IgM 103 Discharge Plan Discharge Attending physician on discharge: Ortiz Anaya Consulting providers: Richard Olvera Discharging Clinician: Shabana Patten Patient Disposition: Home, Self-Care Activity: as tolerated Diet: regular Discharge Instructions: Medications: Amoxicillin 1000 mg every 8 hours for 6 more days Azithromycin 500 mg x 1 more day Albuterol p.r.n. for shortness of bread Anemia: B12 supplement daily Iron supplement daily Advise iron supplementation as an outpatient.
[2023-07-05] MEDS: AMOXICILLIN 500 MG CAPSULE 1000 MG PO (14:14)
[2023-07-06 07:34] LABS: Legionella pneumophila Ag Ur Not Detected (Not Detected)
[2023-07-06 10:28] LABS: Methylmalonic Acid 93 nmol/L (87-318)
[2023-07-06 16:29] LABS: Adenovirus DNA Not Detected (Not Detected); Chlamydophila pneumoniae Not Detected (Not Detected); Coronavirus 229E Not Detected (Not Detected); Coronavirus HKU1 Not Detected (Not Detected); Coronavirus NL63 Not Detected (Not Detected); Coronavirus OC43 Not Detected (Not Detected); Human Metapneumovirus Not Detected (Not Detected); Human Parainfluenza Virus 1 Not Detected (Not Detected); Human Parainfluenza Virus 2 Not Detected (Not Detected); Human Parainfluenza Virus 3 Not Detected (Not Detected); Human Parainfluenza Virus 4 Not Detected (Not Detected); Human RSV B Not Detected (Not Detected); Influenza A Not Detected (Not Detected); Influenza B Not Detected (Not Detected); Mycoplasma pneumoniae Not Detected (Not Detected); Rhinovirus/Enterovirus Not Detected (Not Detected)
[2023-07-06 20:22] LABS: Pneumococcal Antigen Urine Not Detected (Not Detected)
--- NOTE | 2023-07-18 11:23 | PC.NURSE ---
Blood cultures are negative.
== END 2023-07-05 14:40 | disposition home or self-care (01) | DRG 193 ==
LOC: ANHED 10:36 → ANH3MEDSUR 12:10 → ANH2MED 13:13
PROVIDERS: Internal Medicine Pulmonary Disease; Physician Assistant; Admitting Provider Student in an Organized Health Care Education/Training Program; Emergency Provider Emergency Medicine; PCP Family Medicine; Visit Provider Internal Medicine Critical Care Medicine
DX: J18.9 Pneumonia, unspecified organism (principal); J81.0 Acute pulmonary edema; J96.01 Acute respiratory failure with hypoxia; J90 Pleural effusion, not elsewhere classified; R78.81 Bacteremia; B95.4 Other streptococcus as the cause of diseases classified elsewhere; D64.9 Anemia, unspecified; Z20.822 Contact with and (suspected) exposure to COVID-19; F41.8 Other specified anxiety disorders
CPT/HCPCS: 36415; 36600; 71045; 71275; 80048; 80053; 82375; 82607; 82728; 82746; 82803; 82805; 82948; 83050; 83540; 83550; 83605; 83735; 83880; 83921; 84145; 84443; 84484; 85025; 85610; 85730; 86140; 86703; 86738; 87040; 87081; 87147; 87181; 87186; 87449; 87633; 87637; 87899; 93005; 94640; 96361; 96365; 96367; 96375; 99285; A9270; C8929; G0432; J0456; J0696; J1885; J1940; J7030; Q9957; Q9967

== ENCOUNTER 2023-07-26 11:37 | Outpatient (CLI) | payer OTHER, SELFPAY ==
--- NOTE | ~2023-07-26 | XR_ITS ---
XR chest 2V 07/26/2023 12:11 Indication: Pneumonia Procedure: PA and lateral views of the chest Comparison: 07/02/2023 Findings: Borderline heart size. There is a 1 cm nodule right lower thorax. Follow-up CT chest recomm ended. No focal pneumonia, pleural effusion or pneumothorax. Impression: 1: Right lower lung nodule measuring [address] chest recommended to exclude parenchym al nodule. Reviewed, dictated and finalized at location [facility]. [employer] Impression: 1: Right lower lung nodule measuring [address] chest recommende d to exclude parenchymal nodule.
== END 2023-07-26 11:38 | disposition home or self-care (01) ==
LOC: ANHIMG 11:39
PROVIDERS: PCP Family Medicine; Visit Provider Physician Assistant Medical
DX: J18.9 Pneumonia, unspecified organism (principal); J90 Pleural effusion, not elsewhere classified; R91.1 Solitary pulmonary nodule
CPT/HCPCS: 71046

== ENCOUNTER 2023-08-12 14:09 | Outpatient (CLI) | payer OTHER, SELFPAY ==
--- NOTE | ~2023-08-12 | CT_ITS ---
EXAMINATION: CT diagnostic chest wo con DATE: 08/12/2023 14:28 INDICATION: Solitary pulmonary nodule identified in 07/26/2023 chest radiographic examination TECHNIQUE: Computed tomography (CT) of the chest was performed without intravenous contrast. Automate d exposure control and iterative reconstruction technique were employed. Exam dose: 237.85 mGy-cm to maddy exam DLP. COMPARISON: 07/26/2023 2 view chest 07/02/2023 CTA chest FINDINGS: 5 mm middle lobe nodule. Heavily calcified approximately 1 cm right lower lobe pulmonary granuloma with associated right hilar and subcarinal calcified nodes, consistent with old pulmonary granulomatous disease. No other pulmonary mass lesion or pulmonary infiltrate or consolidation. Normal heart size. No pericardial or pleural effusion. No thoracic aortic aneurysm. No hilar or media stinal mass lesion or lymphadenopathy. Normal morphology of the adrenal glands. No suspicious osteolytic or osteoblastic lesions. IMPRESSION: 5 mm middle lobe nodule, most likely a benign pulmonary granuloma. 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 Reviewed, dictated and finalized at location B. [employer]INE[employer]
== END 2023-08-12 14:10 | disposition home or self-care (01) ==
PROVIDERS: PCP Family Medicine; Visit Provider Physician Assistant Medical
DX: R91.1 Solitary pulmonary nodule (principal); R91.8 Other nonspecific abnormal finding of lung field
CPT/HCPCS: 71250

== ENCOUNTER 2023-10-24 00:40 | Day surgery (SDC) | payer OTHER, SELFPAY ==
[2023-10-17 08:16] VITALS: BMI 28.3
--- NOTE | 2023-10-17 08:17 | PC.NURSE ---
Addendum entered by Brandy Caldwell RN 10/18/23 12:13: CONTACTED PT AND INSTRUCTED TO HOLD 10/19 DOSE OF TIRZEPATIDE. Original Note: Report to the Outpatient Waiting Room, entrance under the green pavilion located off [facility], at time 0600 on date 10/24/23_. Planned Procedure Time: _0730. Time changes happen often and if your time is changed the preop area will call you the afternoon before. - You and your visitor will be asked to self-screen and do not enter if you have any COVID symptoms. - A mask is optional within the hospital at this time. Patients may have clear liquids (water, carbonated beverages, clear teas, apple juice) until 3 hours prior to surgery with a maximum of 20 ounces. - No food from midnight until time of surgery - Infants may have breast milk until 4 hours before surgery, formula 6 hours prior to surgery. - Children will be allowed to drink immediately following surgery. If applicable, please bring a bottle or sippy cup to assist with drinking. Juice, water, soda, and popsicles are readily available. For infants on formula, please bring formula the day of surgery. Pacifiers are allowed. Take the following medications with a SIP of water the morning of surgery: ____citalopram, inhaler if needed DO NOT STOP ANY OF YOUR OTHER PRESCRIPTION MEDICATIONS PRIOR TO SURGERY ?EXCEPT THE FOLLOWING Medications to discontinue per physician vitamin/ suppliment Date to take last dose___10/20/23 Please no make-up, nail mohawk, hairspray, perfume, deodorant, or body powder the day of surgery. No jewelry (including any body piercings) or valuables the day of surgery, leave them at home. Please take a shower or bath the night before, or the morning of, surgery with an antibacterial soap. Wear comfortable, loose fitting clothing. Children are encouraged to wear pajamas. - Jewelry must be removed prior to entering the operating room. Rings and piercings that are not removed may be cut off. - The hospital will not accept responsibility for valuables. - Please leave all valuables, including medications, at home the day of surgery. If you are going home after surgery, a licensed driver recruiter must drive you home. - NO public transportation without another adult if you receive anesthesia. - We recommend that an adult stay with you for 24 hours following discharge. - We also recommend that you do not drive, make important decision, drink alcoholic beverages, or take any drugs that were not prescribed by your health care provider for at least 24 hours after your discharge time. For Pediatric surgeries, we recommend two adults accompany the child home. Follow any additional instructions given to you from your surgeon. If you or anyone in your household have experienced Covid symptoms in the past week, please notify your surgeon or the nurse liaison at the phone number below for possible testing. Telephone instructions given to __patient_and asked if any additional questions and then verbalized understanding. Patient advised to call surgeon office or pre surgery nurse liaison [phone] if any additional questions.
[2023-10-24] VITALS (9 sets, daily range): BP systolic 132–143; BP diastolic 50–78; PULSE 82–100; RESP 12–19; TEMP 36.2–36.4; O2SAT 97–100
[2023-10-24 06:58] LABS: Urine Cotinine NEGATIVE
[2023-10-24] MEDS: LACTATED RINGERS 1,000 ML 30 ML IV CONT ×2 (07:03→10:43)
--- NOTE | 2023-10-24 07:03 | P.OP_ITS ---
Procedure Note - Detailed Date of Procedure 10/24/23 Pre-op Diagnosis skin laxity Post-op Diagnosis Same Procedure Performed Excisions / suction lipectomy bilateral chest gynecomastia Surgeon Samy Arrington MD Anesthesia General Findings Lipoaspirate 550 cc Description of Procedure He is here today for the above procedure. Previously and again today the risks, benefits, alternatives were discussed in extensive detail. I wanted him to be very realistic about the risks involved as well as expectations. We discussed aftercare and what to monitor for. Discussed realistic expectations of outcome. Made sure I answered all of questions to satisfaction today and consent was obtained. He was marked in the preoperative holding area standing with his verification. The patient was taken to the operating room placed supine on the operating table. Anesthesia was provided by anesthesiology. Prepped and draped in a standard sterile fashion. A surgical time-out was taken. Stab incisions were made and I tumesced with a tumescent solution. I proceeded with suction lipectomy based on S.A.F.E. technique using a 5mm basket cannula. This was in multiple planes and passes and based on pre- operative planning, intraoperative observation, and rolling pinch test which was in full agreement. He was placed in a sitting position to verify final contour. This was lateral chest / planned resection site. A 10 blade was used to make an incision along the inferior and lateral pectoralis border. Verified tissue to resect and resection was completed of the removed tissue / gland. Tacked into place and verified in a sitting position. Marked NAC location. Incision was closed with 2-0 Vicryl (3 point sutures), 3-0 Stratafix, and running subcuticular 4-0 Monocryl an tissue glue. I deepithelialized the planned new NAC location and incised. NAC inset with 3-0 Monocryl and 4-0 Monocryl running subcuticular followed by tissue glue. Dressing was placed. Patient was awoke and taken to PACU without difficulty. All instrument and sponge counts were correct at the end of the case. Estimated Blood Loss 75 Drains Yes (15 Micha) Packing No Pathology None sent Complications No immediate complications Condition Stable Disposition PACU
--- NOTE | 2023-10-24 07:03 | WPDHPUPDATE1 ---
History and Physical Update Update Date/Time: 10/24/23 07:03 History and Physical has been reviewed, including an updated exam of the patient. There are NO changes in the patient's condition. Risks, benefits, and alternatives have been discussed and questions answered. Patient agrees to proceed with procedure.
--- NOTE | 2023-10-24 07:11 | WPDANESEPPF ---
Anes - Initial Pre Proc Eval Procedure: Operation Date: 10/24/23 07:30 Proposed Procedures p Bilateral Gynecomastia with Liposuction, Excision of Skin and Gland Removal - Samy Arrington MD Date/Time: 10/24/23 07:11 Surgeon: Samy Arrington MD Pre Op Diagnosis: skin laxity Patient Data Age: 27 Gender: M Height: 1.88 m Weight: 100 kg Allergies Allergy/AdvReac Type Severity Reaction Status Date / Time No Known Allergies Allergy Verified 10/24/23 06:42 Home Medications Medication Instructions Recorded Confirmed Type albuterol sulfate 90 mcg/actuation 1 inh inhalation QID PRN shortness 07/05/23 10/24/23 Rx aerosol inhaler of breath or wheezing #6.7 grams cyanocobalamin (vitamin B-12) 1,000 mcg PO QAM #30 tabs 07/05/23 10/24/23 Rx 1,000 mcg tablet (Vitamin B-12) ferrous gluconate 324 mg (38 mg 324 mg PO DAILY@0800 #30 tabs 07/05/23 10/24/23 Rx iron) tablet citalopram 20 mg tablet 20 mg PO DAILY #90 tabs 10/18/23 10/24/23 Rx tirzepatide (weight loss) 5 mg/0.5 7.5 mg (0.75 mL) subcut WEEKLY #2 10/18/23 10/24/23 Rx mL subcutaneous pen injector mL (Zepbound) Laboratory Tests 10/24/23 06:38 Cotinine Negative Patient hx anesthesia problems: none Family hx anesthesia problems: none Results Review: All pre-operative results and documents have been reviewed as part of the pre-operative evaluation. [facility] Past Medical History Medical History BMI 30.0-30.9,adult Depression with anxiety Hearing loss Surgical History Surgical History No history of previous surgery Family History Family History Father No problems noted. Mother No problems noted. Sibling No problems noted. Social History Social History Social History: Surrogate medical decision maker: Sonny Hood, parents. Code status: Full code. 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 Spiritual care concerns: No Anes - Eval Final PreProcedure Day of Procedure 10/24/23 07:11 Patient weight: normal Heart: regular rate and rhythm Lungs: clear to auscultation Airway: Mallampati scale class II Neurological: alert and oriented Last oral intake: >/= 8 hours ASA classification: II Emergent: no Anesthetic plan: proceed Anesthesia type and monitoring: general LMA and standard monitoring Results Review: All pre-operative results and documents have been reviewed as part of the pre-operative evaluation. Informed Consent: The patient's anesthetic plan and its attendant risks and benefits were discussed with the patient/family/POA. Questions were solicited and answers provided to the satisfaction of the patient/family/POA.
[2023-10-24] MEDS: TRANEXAMIC ACID 1,000MG/ISO100 1,000 MG/100 ML BAG 200 MG IVPB (07:18)
[2023-10-24] MEDS: ceFAZolin 2 GM/D5W 50 ML 2 GM/50 ML BAG IVPB (07:27)
[2023-10-24] MEDS: LACTATED RINGERS IRRIG 1,000 ML, LIDOCAINE HCL 1% LOCAL INJ 50 ML, EPINEPHrine HCL INJ ... INFILTRATE (07:27)
[2023-10-24] MEDS: HYDROmorphone HCL INJ (*CRX) 1 MG/ML SYR IV PUSH (10:51)
[2023-10-24] MEDS: fentaNYL CITRATE INJ (*CRX) 100 MCG/2 ML VIAL 25 MCG IV PUSH ×8 (10:58→11:27)
[2023-10-24] MEDS: ONDANSETRON INJ 4 MG/2 ML VIAL IV PUSH (11:40)
[2023-10-24] MEDS: oxyCODONE HCL (*CRX) 5 MG TAB IR PO (11:48)
== END 2023-10-24 12:45 | disposition home or self-care (01) ==
PROVIDERS: PCP Family Medicine; Visit Provider Surgery Plastic and Reconstructive Surgery
PROC: (CPT 19300; principal; 2023-10-24 07:30)
DX: Z41.1 Encounter for cosmetic surgery (principal); L57.4 Cutis laxa senilis; N62 Hypertrophy of breast; F41.8 Other specified anxiety disorders; Z79.51 Long term (current) use of inhaled steroids; Z79.85 Long-term (current) use of injectable non-insulin antidiabetic drugs
CPT/HCPCS: 19300; 15877; 80307; A9270; J0171; J0690; J1100; J1170; J2250; J2405; J2704; J3010; J7120

== ENCOUNTER 2024-05-01 13:44 | Outpatient (CLI) | payer OTHER, SELFPAY ==
--- NOTE | ~2024-05-01 | MR_ITS ---
EXAMINATION: MR orbits face neck wo/w con DATE: 05/01/2024 14:45 INDICATION: Optic atrophy of both eyes. TECHNIQUE: Magnetic resonance imaging (MRI) of the orbits was performed without and with 19 mL MultiH ance intravenous contrast. COMPARISON: None. FINDINGS: There is no intracranial hemorrhage, acute infarction, or abnormal intracranial mass lesion . The ventricles are normal in size. There is mild mucosal thickening in the paranasal sinuses. The mastoid air cells are normal. The optic nerves, extraocular muscles, and ocular globes are normal. Th ere is no abnormal orbital mass. IMPRESSION: 1. Normal orbits and brain. Reviewed, dictated and finalized at location B. IMPRESSION: 1. Normal orbits and brain.
== END 2024-05-01 13:45 | disposition home or self-care (01) ==
DX: H47.20 Unspecified optic atrophy (principal)
CPT/HCPCS: 70543; A9577

== ENCOUNTER 2024-09-08 11:51 | Emergency (ER) | payer OTHER, SELFPAY ==
--- NOTE | 2024-09-08 11:55 | ED_ITS ---
HPI - URI/Sore Throat General Chief Complaint: Upper Respiratory Infection Stated Complaint: Sore throat Time Seen by Provider: 09/08/24 11:56 Source: patient Mode of arrival: ambulatory Limitations: no limitations History of Present Illness HPI Narrative: Patient is a 28-year-old male who presents with 3 days of sore throat, headache, body aches, nausea. Denies any fever, chills, vomiting or diarrhea, cough, co ngestion. Has history of strep throat and pneumonia. Has tried ibuprofen without relief. Related Data Allergies Allergy/AdvReac Type Severity Reaction Status Date / Time No Known Allergies Allergy Verified 09/08/24 11:53 Review of Systems Review of Systems: All systems reviewed & are unremarkable except as noted in HPI and below Constitutional: Constitutional: Denies chills, Denies fatigue, Denies fe brady(s), Reports headache(s), Denies malaise and Denies weakness Eyes: Eyes: Denies blurry vision, Denies itchy eyes and Denies loss of vision ENT: Denies otalgia, Reports headache(s), Denies nasal congestion, Denies sinus pain and Reports sore throat Cardiovascular: Cardiovascular: Denies chest pain, Denies irregular heart rhythm and Denies dyspnea Respiratory: Respiratory: Reports cough and Denies dyspnea Gastrointestinal: Gastrointestinal: Denies abdominal pain, Denies diarrhea, Reports nausea and Denies vomiting Musculoskeletal: Musculoskeletal: Denies back pain, Reports myalgias and Denies arthralgias Integumentary/Breasts: Skin/Breast: Denies pruritus and Denies rash Neurologic: Denies headache(s), Denies loss of vision and Denies weakness Psychiatric: Psychiatric: Reports no additional psychiatric complaints Endocrine: Endocrine: Denies fatigue Allergic/Immunologic: Allergic/Immunologic: Denies itchy eyes PMFSH Past Medical History Medical History Depression with anxiety Hearing loss Screening for thyroid disorder Screening cholesterol level Screening for diabetes mellitus Surgical History Surgical History No history of previous surgery Family History Family History Father No problems noted. Mother No problems noted. Sibling No problems noted. Social History Social History Social History: Surrogate medical decision maker: Sonny or Kassi Hood, parents. Code status: Full code. 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 Spiritual care concerns: No Comments At time of signature, agree with nursing past medical, surgical, social and family history. There is no relevant family history pertinent to the presenting complaint. Exam Const: General: cooperative, healthy appearing, comfortable, no acute distress and well nourished Nutritional Appearance: well nourished Orientation/consciousness: patient oriented x3 Limitations: no limitations HENMT: Head: normal to inspection, normocephalic and atraumatic Ears: hearing grossly normal bilaterally, external ears normal, TM's normal bilaterally, EAC's normal and no periauricular adenopathy Face/Nose/Sinus: Normal external nose present, Abnormal mucous membranes and turbinates present erythematous bilateral and diffuse, normal facial exam, sinuses nontender and face symmetric Face and sinus: normal facial exam, sinuses nontender and face symmetric Mouth: Yes Normal oral and palatal mucosa present, Yes lip normal, Yes tongue normal, Yes Normal salivary glands and ducts present, Yes oropharynx normal and Yes moist mucous membranes Teeth and gingiva: dentition normal Throat: posterior oropharynx normal, tonsils normal and uvula midline Eyes: General: appearance normal, both eyes and all related structures Alignment and Position: alignment normal and position normal Periorbital: periorbital findings normal Eyelids: eyelids normal Pupils: Equal, round and reactive pupils present Neck: Neck: normal visual inspection, full ROM, no lymphadenopathy and supple Chest: Chest palpation & inspection: normal inspection of the chest and normal palpation of entire chest wall Resp: Effort & Inspection: normal respiratory effort and able to speak in complete sentences Auscultation: clear to auscultation bilaterally, no crackles, no rales, no rhonchi and no wheezes Cardio: Rate: regular rate Rhythm: regular rhythm Heart sounds: S1 normal heart sound present and S2 normal heart sound present GI: Inspection: normal to inspection Skin: General skin exam: normal color and no rashes or lesions noted Neuro: General: patient oriented x3 and moves all extremities Cranial nerves: Yes Equal, round and reactive pupils present Speech: normal speech Gait exam (Neuro): Normal gait present Extrem: General: normal to inspection, full ROM and no edema Psych: Appearance: grossly normal and well kempt Mental Status: mental status grossly normal Speech and movement: Normal speech and movement present Affect: normal affect Attitude: cooperative Thought process: Normal thought process present Course Course Emergency Course: Discharge instructions reviewed with patient, as well as provided in writing per nursing staff. The instructions also include specific and strict return/GO TO THE ER as well as f/u information. All questions have been answered, and the patient deny any further questions with discharge and discharge plan. Portions of this record may have been created with voice recognition software Level of Care: Express Care Visit Vital Signs Vital signs: Vital Signs Temperature 36.3 C L 09/08/24 12:00 Pulse Rate 90 09/08/24 12:00 Respiratory Rate 18 09/08/24 12:00 Blood Pressure 146/45 H 09/08/24 12:00 Pulse Oximetry 100 09/08/24 12:00 Oxygen Delivery Room Air 09/08/24 12:00 Temperature 36.3 C L 09/08/24 12:00 Pulse Rate 90 09/08/24 12:00 Respiratory Rate 18 09/08/24 12:00 Blood Pressure 140/56 L 09/08/24 12:33 Pulse Oximetry 100 09/08/24 12:00 Oxygen Delivery Room Air 09/08/24 12:00 Reviewed MDM - URI/Sore Throat MDM Narrative Medical decision making narrative: Pt well hydrated appearing, in no respiratory distress, hemodynamically stable. Recommend supportive care. The patient is stable at time of discharge the clinical impression was discussed and the patient was given the opportunity to ask questions, which were addressed as completely as possible given the information available at present. Anticipatory guidance and return to care precautions were discussed and the importance of primary care follow-up was stressed and encouraged. The patient voiced understanding of the plan, indications to return, and the need for follow-up. Differential diagnosis considered: Bronchitis, Mejía virus, strep pharyngitis, allergic rhinitis, upper respiratory tract infection, sinusitis, rhinosinusitis, nasopharyngitis. viral pharyngitis, otitis media, otitis externa, otitis effusion, foreign body, cerumen impaction, viral syndrome, and influenza.? Exam findings show no acute concerns or changes; patient is non-toxic appearing and is in no distress.? Patient is appropriate for outpatient treatment and follow- up.? Medical Records Attestation: I reviewed the patient's medical records. Lab Data Attestation: I reviewed the patient's lab results. Labs: Lab Results 09/08/24 09/08/24 Range/Units 12:08 12:16 POC Influenza A Ag Negative (Negative) POC Influenza B Ag Negative (Negative) POC SARS CoV-2 Ag Negative (Negative) POC Grp A Strep Screen Negative (Negative) Discharge Plan Discharge Clinical Impression: Upper respiratory infection Qualifiers: URI type: acute nasopharyngitis (common cold) Qualified Code(s): J00 - Acute nasopharyngitis [common cold] Patient Disposition: Home, Self-Care Condition: Stable Instructions: Upper Respiratory Infection (ED) Additional Instructions: Your rapid strep swab was negative today at [facility]. A throat culture will be sent to the laboratory for further testing. If the test is positive, you will receive a phone call within 48 hours and an appropriate antibiotic will be initiated at that time. Your Covid and flu are both negative Your symptoms are likely due to a viral illness, which is not treated with antibiotics. Viral symptoms can be present for up to a few weeks. -For pain/fever, you may take: Tylenol 650-1000mg by mouth every 4-6 hours. Do not exceed 4000mg in 24 hours. Advil (Ibuprofen) 600 mg by mouth every 6 hours. Do not exceed 2400mg in 24 hours. 8 AM: Tylenol 11 AM: Ibuprofen 2 PM: Tylenol 5 PM: Ibuprofen 8 PM: Tylenol 11 PM: Ibuprofen 2 AM: Tylenol 5 AM: Ibuprofen -Antihistamine medication such as Benadryl/Zyrtec at night and Claritin/Bernice during the day can help improve symptoms. -Use Flonase twice a day for 5 days then daily to help reduce the inflammation and dry up your sinuses. -You can also use Sudafed behind the pharmacy counter(12 or 24 hour). Be sure to drink plenty of water with these medications at least 8 ounces with every dose and it is important to drink 8 to 10 glasses of water per day. Water is a natural decongestant -Eat and drink things that are easy to swallow, like tea or soup, or popsicles. -Oral rinses such as: Salt water gargles and/or may use topical anesthetic (eg. Chloraseptic spray) or lozenges to relieve dryness or throat pain). -Frequent hand washing or hand superintendent local is one of the best ways to prevent spread of infection. -Using a vaporizer or humidifier at night will also help thin secretions and help with coughing up phlegm. Call your Primary Care Doctor and make a follow-up appointment in 3 days. If your cough worsens, you develop a fever greater than 103, you develop shaking chills, a fast heartbeat, trouble breathing and/or feel you are are breathing much faster than usual, call your Primary Care Doctor or go to the ER. Your blood pressure was elevated above 120/80 today at Urgent Care. This puts you above the threshold for follow up visit with a primary care provider. High blood pressure does not usually cause any symptoms, however it may lead to kidney failure, stroke, heart disease just to name a few if untreated . Many people are anxious when seeing a provider or nurse. As a result, you are not diagnosed with hypertension at this time unless your blood pressure is persistently high at two office visits at least one week apart. Some things that can help lower blood pressure are lifestyle modifications, such as light exercise, decreased salt in diet, and weight loss. It is important to follow up with a PCP about this within 1 week. Patient Language: Moldovan Prescriptions: New ondansetron 4 mg tablet,disintegrating 4 mg PO Q6-8H PRN (Reason: nausea and vomiting) Qty: 7 0RF fluticasone propionate [Flonase Allergy Relief] 50 mcg/actuation spray,suspension 1 spray intranasal DAILY Qty: 16 0RF Rx Instructions: administer into each nostril No Action duloxetine 60 mg capsule,delayed release(DR/EC) 60 mg PO DAILY Qty: 90 1RF ferrous gluconate 324 mg (38 mg iron) Tablet 324 mg PO DAILY@0800 Qty: 30 0RF albuterol sulfate 90 mcg/actuation HFA aerosol inhaler 1 inh inhalation QID PRN (Reason: shortness of breath or wheezing) Qty: 6.7 0RF lisdexamfetamine [Vyvanse] 50 mg capsule 50 mg PO QAM Qty: 30 0RF Follow-up/Referrals: Keegan Kerr MD [Primary Care Provider] - 3 Days Time of Disposition: 12:30
[2024-09-08 12:00] VITALS: BP 146/45; PULSE 90; RESP 18; TEMP 36.3; O2SAT 100
[2024-09-08 12:10] LABS: EDSTREPNEGPOS1 Negative (Negative)
[2024-09-08 12:17] LABS: EDCOVIDSCREEN Negative (Negative)
[2024-09-08 12:20] LABS: EDINFLUASCREEN Negative (Negative); EDINFLUBSCREEN Negative (Negative)
[2024-09-08 12:33] VITALS: BP 140/56
--- OUTSIDE RECORDS SUMMARY | 2024-09-08 13:27 | XMS_ITS | Clinical Summary ---
Author Organization [facility] Address [address] [place] [address] Care Team Providers Care Post Doctoral Fellow Name Role Phone Keegan Kerr MD Primary Care Provider [phone] Camryn Fowler OD Unavailable [phone] Cooper Montgomery MD Unavailable [phone] Allergies No known active allergies Medications iron bisgly,ps-FA-B- C#12-succ 65 mg-65 mg -1,000 mcg (24) tablet Take by mouth Active diazePAM (VALIUM) 10 mg tabletIndicatio ns:anxiety for MRI or procedure Take 1 tablet (10 mg total) by mouth as needed for anxiety (anxiety for MRI or procedure) Take approx. 45 minutes before start of MRI or procedure. Do not drive after taking the medication-- bring a automation driver for after your MRI or procedure. 1 tablet 03/05/2024 Active cholecalciferol (VITAMIN D-3) 50,000 unit capsule Take 1,000 Units by mouth once 03/17/2024 Active Vyvanse 50 mg capsule Take 1 capsule (50 mg total) by mouth every morning 03/12/2024 Active Wegovy 1.7 mg/0.75 mL auto-injector Inject 0.75 mL (1.7 mg total) under the skin once 05/11/2024 Active Active Problems Problem Noted Date Diagnosed Date Sensorineural hearing loss (SNHL) of both ears 0 12/04/2018 Tinnitus of both ears 12/04/2018 Ankle pain 07/23/2016 Hyperlipidemia 12/13/2011 Encounters Date Type Department Care Team Description 09/08/2024 Orders Only [facility]ocr[facility] Metabolism and Lipid [address] [facility] [address] [facility] [address]th [place] [address] [place] [address] Estefanía Loyd MD Wolfram syndrome (Primary Dx) 09/03/2024 Telephone [facility] Metabolism and Lipid [address] [facility] [address] [place] [address] [place] [address] Rick Méndez MD PhD Wolfram Syndrome Clinic scheduling 08/21/2024 Documentation [facility] [address] [facility] [address]th [place] [address] Estefanía Loyd MD 08/04/2024 4:00 PM [employer]SEMBLER TR[employer] Procedure visit [facility] Otolaryngology [address] [facility] [address] [place] [phone] Mayra Henley Au.D. Sensorineural hearing loss (SNHL) of both ears (Primary Dx) 06/10/2024 1:45 PM ASSEMBLER TRIM Office Visit [facility] [address], [address] [place] [phone] Estefanía Loyd MD Optic atrophy, both eyes (Primary Dx) 06/10/2024 1:20 PM ASSEMBLER TR[employer] Imaging Exam [facility] [address], [address] [place] [phone] Optic atrophy, both eyes; Visual disturbance 06/10/2024 1:00 PM ASSEMBLER TRIM Imaging Exam [facility] [address], [address] [place] [address] Optic atrophy, both eyes (Primary Dx); Visual disturbance from Last 3 Months Family History Medical History Relation Name Comments Diabetes Brother Hypertension Father Lung cancer Father Lupus Father Stroke Father ocular abnormalities Father Breast cancer Mother Depression Mother Glaucoma Mother Hyperlipidemia Mother Relation Name Status Comments Brother Father Mother Social History Tobacco Use Types Packs/Day Years Used Date Smoking Tobacco: Never Smokeless Tobacco: Never Alcohol Use Standard Drinks/Week Comments Yes 0 (1 standard drink = 0.6 oz pur e alcohol) social AUDIT-C Answer Date Recorded Q1: How often do you have a drink containing alc ohol? Monthly or less 06/10/2024 Average Number of Drinks Not on file 024 Frequency of Binge Drinking Not on file 05/31 Sex and Gender Information Value Date Recorded Sex Assigned at Not on file Legal Sex Male 11:53 PM ASSEMBLER TR[employer] Gender Identity Male 12/04/2019 6:33 AM CDT Sexual Orientation Vera 12/04/2019 6: 33 AM CDT Obstetrics History Last Filed Vital Signs Vital Sign Reading Time Taken Comments Blood Pressure 132/78 12/04/2018 9:15 AM CDT Pulse - - Temperature - - Respiratory Rate - - Oxygen Saturation - - Inhaled Oxygen Concentration - - Weight 137 kg (302 lb) 12/04/2018 9:15 AM CDT Height 188 cm (6' 2 ) 12/04/2018 9:15 AM CDT Body Mass Index 38.77 12/04/2018 9:15 AM CDT Plan of Treatment Health Maintenance Due Date Last Done Comments Albumin Creatinine Ratio, Urine 1996 Depression Screening 1996 Foot Exam 1996 Hemoglobin A1C 1996 Hepatitis C Screening 1996 TSH Level 1996 eGFR 1996 Lipid Panel 2006 Regular Well Visit/Exam 18-64 2014 Pneumococcal vaccine <65 (1 of 2 - PCV) 11/07/2015 DTaP/Tdap/Td Vaccine (7 - Td or Tdap) 2017 11/07/2007, 12/10/2001, 05/23/1998, Additional history exists Influenza Vaccine (#1) 2024 7, 04/21/2015, 04/26/2014, Additional history exists Dilated Eye Exam 03/04/2025 03/04/2024 Hepatitis B Screening Completed 09/07/1997 , 1996, 1996 Varicella Vaccines Completed 10/24/2006, 05/23/1998 HPV Vaccines Completed 03/18/2012, 10/29, 09/15/2011 Procedures Procedure Name Priority Date/Time Associated Diagnosis Comments CLARK VISUAL FIELD - OU - BOTH EYES Routine 06/10/2024 1:19 PM ASSEMBLER TRIM Optic atrophy, both eyes Visual disturbance OCT, RETINA - OU - BOTH EYES Routine 06/10/2024 1:18 PM ASSEMBLER TRIM Optic atrophy, both eyes Visual disturbance OCT, OPTIC NERVE - OU - BOTH EYES Routine 06/10/2024 1:18 PM ASSEMBLER TRIM Optic atrophy, both eyes Visual disturbance from Last 3 Months Results * Clark Visual Field - OU - Both Eyes (06/10/2024 1:19 PM ASSEMBLER TRIM) Anatomical Region Laterality Modality Head Other Narrative 06/10/2024 1:19 PM ASSEMBLER TRIM Improved performance compared to prior. Full OU other than nasal rim OS. FT 36 dB OD, 37 dB OS us Estefanía Loyd MD OPH VISUAL FIELD Final Re sult * OCT, Retina - OU - Both Eyes (06/10/2024 1:18 PM ASSEMBLER TRIM) Anatomical Region Laterality Modality Head Other Narrative 06/10/2024 1:18 PM ASSEMBLER TRIM Right Eye Findings include normal observations. Left Eye Findings include normal observations. Notes Stable diffuse ganglion cell complex thinning OU, with mean GCC thickness: 67 microns OD, 70 microns OS (on Ze[employer] Cirrus OCT) us Estefanía Loyd MD OPHTH TOMOGRAPHY Final Resu lt * OCT, Optic Nerve - OU - Both Eyes (06/10/2024 1:18 PM ASSEMBLER TRIM) RNFL OS 56 micrometers CONTINUUM RNFL OD 60 micrometers CONTINUUM Anatomical Region Laterality Modality Head Other Narrative 06/10/2024 1:18 PM ASSEMBLER TRIM Right Eye Reliability was good. Average RNFL thickness 60 micrometers. Left Eye Reliability was good. Average RNFL thickness 56 micrometers. Notes Stable RNFL thinning OU (Performed on [employer] Cirrus OCT) Estefanía Loyd MD OPHTH TOMOGRAPHY Final Resu lt from Last 3 Months Insurance [employer] [place] [employer] C[employer] PPO [facility] H[facility]/PPO Address: [address] [address] [place] [address] [facility] H[facility]/PPO Address: [facility] [address] [place] [address] * Guarantor: [employer] Account Type Relation to Patient Date of Phone Billing Address Workers Comp Employer Care Teams Post Doctoral Fellow Relationship Specialty Start Date End Date Keegan Kerr MD PCP - General 10/23/16 Camryn Fowler OD [address] [address] Referring Physician Optometry 03/04/24 Cooper Montgomery MD [address] [facility], [facility] [address] [place] [address] Consulting Physician Otolaryngology 03/04/24
--- OUTSIDE RECORDS SUMMARY | 2024-09-08 13:27 | XMS_ITS | Referral Summary ---
Author Organization [facility] Address [address] [place] [address] Care Team Providers Care Acquisitions Logistics Analyst Name Role Phone Keegan Kerr MD Primary Care Provider Camryn Fowler OD Unavailable [phone] Cooper Montgomery MD Unavailable Encounters Date Type Department Care Team Description 09/08/2024 Orders Only [facility] Endocrinology Metabolism and Lipid [address] [facility] 13th [place] [address] [place] [address] Estefanía oLyd MD Wolfram syndrome (Primary Dx) 09/03/2024 Telephone [facility] Endocrinology Metabolism and Lipid [address] [facility] 13th [place] [address] [place] [address] Rick Méndez MD PhD Wolfram Syndrome Clinic scheduling 08/21/2024 Documentation [facility] Ophthalmology [address] [facility] 6th [place] [address] Estefanía Loyd MD 08/04/2024 4:00 PM ENTREPRENEUR Procedure visit [facility] Otolaryngology [address] [facility] [address] [place] [address] Mayra Henley Au.D. Sensorineural hearing loss (SNHL) of both ears (Primary Dx) 06/10/2024 1:45 PM ENTREPRENEUR Office Visit [facility] Ophthalmology [address] [facility] [address], [address] [place] [address] Estefanía Loyd MD Optic atrophy, both eyes (Primary Dx) 06/10/2024 1:20 PM ENTREPRENEUR Imaging Exam [facility] Ophthalmology [address] [facility] [address], [address] [place] [address] Optic atrophy, both eyes; Visual disturbance 06/10/2024 1:00 PM ENTREPRENEUR Imaging Exam [facility] Ophthalmology [address] 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 [...] ears 12/04/2018 Ankle pain 07/23/2016 Hyperlipidemia 12/13/2011 Social History Tobacco Use Types Packs/Day Years [...] on file Legal Sex Male 11:53 PM ENTREPRENEUR Gender Identity Male 12/04/2019 6:33 AM CDT Sexual Orientation Vera 12/04/2019 6: 33 AM CDT Last Filed Vital Signs Vital Sign Reading [...] 12/04/2018 9:15 AM CDT Plan of Treatment Not on file Procedures Procedure Name Priority Date/Time Associated Diagnosis Comments CLARK VISUAL FIELD - OU - BOTH EYES Routine 06/10/2024 1:19 PM ENTREPRENEUR Optic atrophy, both eyes Visual disturbance OCT, RETINA - OU - BOTH EYES Routine 06/10/2024 1:18 PM ENTREPRENEUR Optic atrophy, both eyes Visual disturbance OCT, OPTIC NERVE - OU - BOTH EYES Routine 06/10/2024 1:18 PM ENTREPRENEUR Optic atrophy, both eyes Visual disturbance from Last 3 Months Results * Clark Visual Field - OU - Both Eyes (06/10/2024 1:19 PM ENTREPRENEUR) Anatomical Region Laterality Modality Head Other Narrative 06/10/2024 1:19 PM ENTREPRENEUR Improved performance compared to prior. Full OU other than nasal rim OS. FT 36 dB OD, 37 dB OS us Estefanía Loyd MD OPH VISUAL FIELD Final Re sult * OCT, Retina - OU - Both Eyes (06/10/2024 1:18 PM ENTREPRENEUR) Anatomical Region Laterality Modality Head Other Narrative 06/10/2024 1:18 PM ENTREPRENEUR Right Eye Findings include normal observations. Left Eye Findings include normal observations. Notes Stable diffuse ganglion cell complex thinning OU, with mean GCC thickness: 67 microns OD, 70 microns OS (on Ze[employer] Cirrus OCT) us Estefanía Loyd MD OPHTH TOMOGRAPHY Final Resu lt * OCT, Optic Nerve - OU - Both Eyes (06/10/2024 1:18 PM ENTREPRENEUR) RNFL OS 56 micrometers CONTINUUM RNFL OD 60 micrometers CONTINUUM Anatomical Region Laterality Modality Head Other Narrative 06/10/2024 1:18 PM ENTREPRENEUR Right Eye Reliability was good. Average RNFL thickness 60 micrometers. Left Eye Reliability was good. Average RNFL thickness 56 micrometers. Notes Stable RNFL thinning OU (Performed on [employer] Cirrus OCT) us Estefanía Loyd MD OPHTH TOMOGRAPHY Final Resu lt from Last 3 Months Insurance [facility] PPO [facility] CHOICE PLUS [facility] CHOICE PLUS * Guarantor: [employer] Account Type Relation to Patient Date of Phone Billing Address Workers Comp Employer Care Teams Acquisitions Logistics Analyst Relationship Specialty Start Date End Date Keegan Kerr MD PCP - General 10/23/16 Camryn Fowler OD [address] [place] [address] Referring Physician Optometry 03/04/24 Cooper Montgomery MD [address] OTOLARYNGOLOGY, [place] [address] [place] [address] Consulting Physician Otolaryngology 03/04/24
--- OUTSIDE RECORDS SUMMARY | 2024-09-08 13:27 | XMS_ITS | Encounter Summary ---
Author Organization [facility] Address [address] [facility] [address] [place] [address] Phone Care Team Providers Care Installation Engineer Name Role Phone Keegan Kerr MD Primary Care Provider [phone] Camryn Fowler OD Unavailable [phone] Cooper Montgomery MD Unavailable [phone] Reason for Referral * Consultation (Routine) - Pending Review Specialty Diagnoses / Procedures Referred By Funmi kelly Referred To Contact Endocrinology Diagnoses Wolfram syndrome Estefanía Loyd MD [address] [facility] [place] [address] [place] [address] Phone: tel: fax: Maye Méndez MD PhD [address] [place] [address] [address] [place] [address] Phone: tel: fax: Referral ID Status Reason Start Date Expiration Date Visits Requested Visits Authorized [id number] Pending Review Specialty Services Required 09/08/2024 10/08/2025 1 1 Question Answer Please select the performing region: [facility] (All Locations) [[id number]] To provider: MAYE MÉNDEZ [[id number]] # of visits: 1 Encounter Details Date Type Department Care Team (Late st Contact Info) Description 09/08/2024 Orders Only [facility] Endocrinology Metabolism and Lipid [address] [facility] 13th [place] [address] [place] [address] Estefanía Loyd MD [address] [facility] [place] [address] [place], [place] [id number] Wolfram syndrome (Primary Dx) Social History Tobacco Use Types Packs/Day Years [...] on file 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 Gender Identity Male 12/04/2019 6:33 AM CDT Sexual Orientation Vera 12/04/2019 6: 33 AM CDT documented as of this encounter Plan of Treatment Scheduled Referrals Name Type Priority Associated Diagnoses Order Schedule Ambulatory referral to Endocrinology Outpatient Referral Routine Wolfram syndrome 1 Occurrences starting 09/08/2024 until 09/08/2025 documented as of this encounter Visit Diagnoses Diagnosis Wolfram syndrome- Primary documented in this encounter Care Teams Installation Engineer Relationship Specialty Start Date End Date Keegan Kerr MD PCP - General 10/23/16 Camryn Fowler OD [address] [place] [address] Referring Physician Optometry 03/04/24 Cooper Montgomery MD [address] DE[address] OTOLARYNGOLOGY, [facility] [place] [address] Consulting Physician Otolaryngology 03/04/24 documented as of this encounter
== END 2024-09-08 12:33 | disposition home or self-care (01) ==
PROVIDERS: Emergency Provider Nurse Practitioner Family; PCP Family Medicine
DX: J00 Acute nasopharyngitis [common cold] (principal); Z20.822 Contact with and (suspected) exposure to COVID-19
CPT/HCPCS: 87081; 87426; 87804; 87880; 99213; G0463